=== PATIENT | female | born 1990 | race Caucasian/White ===

== ENCOUNTER 2020-02-19 16:03 | Emergency (ER) | payer MEDICAID ==
[~2020-02-19] VITALS: Ht 177.8 cm; Wt 136.1 kg
[2020-02-19 16:41] VITALS: BP 185/105
== END 2020-02-19 16:47 | disposition home or self-care (01) ==
LOC: ER 16:03
DX: K04.7 Periapical abscess without sinus (principal)

== ENCOUNTER 2024-04-25 23:14 | Emergency (ER) | payer BC, MEDICAID ==
[~2024-04-25] VITALS: Ht 177.8 cm; Wt 145.0 kg
[2024-04-26 02:20] VITALS: BP 136/72; PULSE 87; RESP 16; TEMP 98.4; O2SAT 99
[2024-04-26] MEDS ORDERED: LIDOCAINE 2% JELLY 11ml (GLYDO) UR ONE (02:30)
[2024-04-26] MEDS: LIDOCAINE 1% HCL (LOCAL ANESTH.) INJ 20ML MDV IJ ONE (03:21)
[2024-04-26] MEDS: TETANUS-DIPTH-ACEL PERTUSSIS 0.5ML SYR Tdap IM ONE (04:06)
[2024-04-26] MEDS ORDERED: CEPH250C PO (04:11)
[2024-04-26] MEDS ORDERED: IBUP-1455 PO (04:11)
== END 2024-04-26 04:35 | disposition home or self-care (01) ==
LOC: ER 23:14
DX: S31.41XA Laceration without foreign body of vagina and vulva, initial encounter (principal); R10.2 Pelvic and perineal pain; R55 Syncope and collapse; W18.39XA Other fall on same level, initial encounter; Y93.89 Activity, other specified; Y92.89 Other specified places as the place of occurrence of the external cause; Y99.8 Other external cause status
CPT/HCPCS: 12002; 36415; 70450; 74176; 84702; 90471; 90715; 93005; J2001